=== PATIENT | male | born 1945 | race Caucasian/White ===

== ENCOUNTER 2021-03-16 07:55 | Emergency (ER) | payer MEDICARE, OTHER, SELFPAY ==
[2021-03-16 08:12] VITALS: BP 173/81; PULSE 47; RESP 18; TEMP 36.2; O2SAT 100
[2021-03-16 08:30] VITALS: BP 157/72; PULSE 48; RESP 16; O2SAT 14
--- NOTE | 2021-03-16 08:51 | ED.SOB ---
HPI - SOB/Dyspnea General Chief Complaint: Shortness of Breath/Dyspnea Stated Complaint: nausea/sob/unsteady x1 day Time Seen by Provider: 03/16/21 08:49 Source: patient Mode of arrival: Wheelchair Limitations: no limitations History of Present Illness HPI Narrative: This is a 75-year-old male who comes to the emergency department with complaint of feeling unsteady, a little bit lightheaded and wobbly today. He states he felt totally normal yesterday. He states that this morning when he woke up he just did not quite feel right. He was unable to check his glucose because he accidentally left his monitor at home. They are camping locally. Patient normally lives in [facility]. Patient states he has not had any fevers, he denies any chills, he denies any cough cold or congestion. He denies any chest pain or pressure. States he has noticed some very mild shortness of breath which is present all the time he denies any orthopnea or worsening with exertion. He denies any worsening shortness of breath. He had some mild nausea this morning which has since resolved. He denies any emesis. He denies any diarrhea, constipation, black or bloody stools. He denies any abdominal, back or flank pain. Patient denies any urinary symptoms including dysuria, urgency, frequency or incontinence. He has recently had his carvedilol decreased by half a month ago and had his lisinopril decreased by half prior to that. He takes medication for polymyalgia rheumatica, diabetes which includes only oral medications, hypertension, dyslipidemia and has a history of sleep apnea which he uses CPAP for. He does have a history of cardiac stent which is placed in 2009 after chest tightness and a positive stress test. He has not had any known MIs or strokes. Patient has multiple orthopedic surgeries, history of Felicia fundoplication, ventral hernia repair, a GIST tumor with removal and some complications that required endoscopy repair x2 and blood transfusion. Patient is anticoagulated on aspirin 81 mg. He is allergic to sulfa. He is accompanied by his . Related Data Allergies Allergy/AdvReac Type Severity Reaction Status Date / Time Sulfa (Sulfonamide Allergy Verified 03/16/21 08:14 Antibiotics) Review of Systems Review of Systems ROS Unobtainable: All systems reviewed & are unremarkable except as noted in HPI and below Patient History Social History Smoking Status: Never smoker Smoking Status: Never smoker alcohol intake frequency: other Substance Use Type: does not use Exam Narrative Exam Narrative: GENERAL: Alert and oriented x three, well-nourished male in mild distress. Patient is lying flat with no major discomfort. HEENT: Head normocephalic, atraumatic, EOMI, pupils reactive, face symmetric, moist mucous membranes NECK: Supple, full range of motion CARDIOVASCULAR: Regular rate and rhythm without murmurs, rubs or gallops. No JVD. No edema bilateral lower extremities. RESPIRATORY: Breath sounds equal bilaterally, no wheezes rales or rhonchi. No tachypnea accessory muscle use. ABDOMEN: Soft, nontender. Normoactive bowel sounds all 4 quadrants. No guarding or rebound, rigidity, no mass : No CVA tenderness EXTREMITIES: Normal range of motion, no clubbing or edema. Neurovascularly intact NEUROLOGICAL: Cranial nerves II through XII grossly intact. Moving all extremities SKIN: Warm, dry, no petechiae, no rashes or lesions. Initial Vital Signs Initial Vital Signs: Vital Signs Temperature 97.1 F L 03/16/21 08:12 Pulse Rate 47 L 03/16/21 08:12 Respiratory Rate 18 03/16/21 08:12 Blood Pressure 173/81 H 03/16/21 08:12 Pulse Oximetry 100 03/16/21 08:12 Course Orders Ordered: ED Orders 03/16/21 08:25 BNP [NT-proBNP (BNP-Adult 18+)] Stat Complete Blood Count AUTO DIFF Stat Comprehensive Metabolic Panel Stat Lipase Stat Magnesium Stat Partial Thromboplastin Time Stat Prothrombin Time INR Stat Troponin & CK Cardiac Panel Stat 03/16/21 09:15 XR chest 1V Stat Reevaluation(s) Reevaluation #1: Discussed labs, imaging and EKG findings with patient and . Discussed possible causes. They did note that patient had not had anything for breakfast this morning. He accidentally left his glucometer at home but his hemoglobin A1c has been 6.5-6.8 recently. They did note that he had cookies before bed and thought he may have spiked and then been low this morning. We discussed he should return if he has recurrent symptoms. All questions were answered. Time: 10:34 Vital Signs Vital signs: Vital Signs - 8 hr 03/16/21 08:12 03/16/21 08:30 03/16/21 09:00 Temperature 97.1 F L Pulse Rate 47 L 48 L 49 L Respiratory Rate 18 16 14 Blood Pressure 173/81 H 157/72 H 149/73 H Pulse Oximetry 100 14 L 99 03/16/21 09:35 Temperature Pulse Rate 47 L Respiratory Rate 16 Blood Pressure 156/67 H Pulse Oximetry 99 MDM - SOB/Dyspnea Lab Data Attestation: I reviewed the patient's lab results. Result diagrams: 03/16/21 08:25 03/16/21 08:25 Labs: Lab Results 03/16/21 03/16/21 03/16/21 Range/Units 08:25 08:25 08:25 WBC 5.6 (4.5-11.0) X10^3/uL RBC 4.15 L (4.5-5.9) X10^6/uL Hgb 12.9 L (13.5-17.5) g/dL Hct 37.9 L (41-53) % MCV 91.3 (80-100) fL MCH 31.0 (26-34) PG MCHC 34.0 (30-36) % RDW 13.8 (11.6-14.8) % Plt Count 186 (150-400) X10^3/uL Neut % (Auto) 65.5 (50-75) % Lymph % (Auto) 18.4 L (25-40) % [place] % (Auto) 9.7 (3-14) % Eos % (Auto) 5.7 H (2-4) % Baso % (Auto) 0.7 (0-2) % Neut # (Auto) 3700 (1457-0386) /uL Lymph # (Auto) 1000 L (7929-0910) /uL [place] # (Auto) 500 (0-900) /uL Eos # (Auto) 300 (0-450) /uL Baso # (Auto) 0 (0-100) /uL PT 11.8 (10.1-12.7) SECONDS INR 1.0 (0.9-1.3) APTT 32 (26.4-36.2) SECONDS Sodium 137 (137-145) mmol/L Potassium 4.0 (3.4-5.1) mmol/L Chloride 99 (98-107) mmol/L Carbon Dioxide 31 (22-32) mmol/L BUN 28 H (9-20) mg/dL Creatinine 1.04 (0.66-1.25) mg/dL Estimated GFR > 60.0 (>60) mL/min BUN/Creatinine Ratio 26.9 H (6-22) Glucose 131 H (80-110) mg/dL Calcium 9.1 (8.4-10.2) mg/dL Magnesium 2.0 (1.6-2.3) mg/dL Total Bilirubin 1.1 (0.2-1.3) mg/dL AST 25 (17-59) IU/L ALT 17 (<50) IU/L Alkaline Phosphatase 87 (38-126) U/L Total Creatine Kinase 51 L (55-170) U/L CK-MB (CK-2) TNP CK-MB (CK-2) Rel Index TNP Troponin I < 0.012 (0.01-0.034) ng/mL NT-Pro-B Natriuret Pep (<450) pg/mL Total Protein 6.7 (6.3-8.2) g/dL Albumin 3.9 (3.5-5.0) g/dL Globulin 2.8 (1.7-4.1) g/dL Albumin/Globulin Ratio 1.4 (1.0-2.8) Lipase 31 (23-300) U/L / Range/Units 08:25 WBC (4.5-11.0) X10^3/uL RBC (4.5-5.9) X10^6/uL Hgb (13.5-17.5) g/dL Hct (41-53) % MCV (80-100) fL MCH (26-34) PG MCHC (30-36) % RDW (11.6-14.8) % Plt Count (150-400) X10^3/uL Neut % (Auto) (50-75) % Lymph % (Auto) (25-40) % [place] % (Auto) (3-14) % Eos % (Auto) (2-4) % Baso % (Auto) (0-2) % Neut # (Auto) (9054-9305) /uL Lymph # (Auto) (0270-2355) /uL [place] # (Auto) (0-900) /uL Eos # (Auto) (0-450) /uL Baso # (Auto) (0-100) /uL PT (10.1-12.7) SECONDS INR (0.9-1.3) APTT (26.4-36.2) SECONDS Sodium (137-145) mmol/L Potassium (3.4-5.1) mmol/L Chloride (98-107) mmol/L Carbon Dioxide (22-32) mmol/L BUN (9-20) mg/dL Creatinine (0.66-1.25) mg/dL Estimated GFR (>60) mL/min BUN/Creatinine Ratio (6-22) Glucose (80-110) mg/dL Calcium (8.4-10.2) mg/dL Magnesium (1.6-2.3) mg/dL Total Bilirubin (0.2-1.3) mg/dL AST (17-59) IU/L ALT (<50) IU/L Alkaline Phosphatase (38-126) U/L Total Creatine Kinase (55-170) U/L CK-MB (CK-2) CK-MB (CK-2) Rel Index Troponin I (0.01-0.034) ng/mL NT-Pro-B Natriuret Pep 158 (<450) pg/mL Total Protein (6.3-8.2) g/dL Albumin (3.5-5.0) g/dL Globulin (1.7-4.1) g/dL Albumin/Globulin Ratio (1.0-2.8) Lipase (23-300) U/L Urine Dip Bedside Urine Glucose Negative Bedside Urine Bilirubin - Negative Bedside Urine Ketone - Negative Urine Specific [place] 1.020 Bedside Urine Occult Blood - Negative Bedside Urine pH 6.0 Bedside Urine Protein - Negative Bedside Urine Urobilinogen - Negative Bedside Urine Nitrite - Negative Bedside Urine Leukocytes - Negative Esterase Imaging Data Chest x-ray: Radiologist's Impression: [address] [id number] ReportSigned Patient: Solo Mcdermott [facility]#: [id number]: 4Acct:[id number]/Sex: 75 / MDate of Service: 03/16/21Loc: EDAccession Number: [id number] Procedure: XR chest 1V Ordering Provider: Adela Piedra D.O. PROCEDURE: XR CHEST 1V INDICATIONS: chest pain TECHNIQUE: One view of the chest was acquired. COMPARISON: None. FINDINGS: Surgical changes and devices: None. Lungs and pleura: Lungs are clear. No pleural effusions or pneumothorax. Mediastinum: Mediastinal contours appear normal. Heart size is normal. Bones and chest wall: No suspicious bony lesions. Overlying soft tissues appear unremarkable. IMPRESSION: No acute cardiopulmonary process demonstrated radiographically. Dictated by: Parrish Hightower M.D. on 03/16/2021 at 9:47 Approved by: Parrish Hightower M.D. on 03/16/2021 at 9:47 ECG Data Attestation: I personally reviewed and interpreted this ECG as follows: Prior ECG tracings: not available for review Interpretation: Sinus bradycardia with a rate of 48, OR 206 QRS of 106 and QTC of 398. No acute ST elevation appreciated. Nonspecific change. MDM Narrative Medical decision making narrative: This is a 75-year-old male comes to the emergency department with feeling wobbly, which has improved. Patient does have anemia unclear if this is new or unchanged as patient does not have any prior labs for comparison. He has not noticed any acute changes recently. He does not have any obvious cardiac, pulmonary or infectious causes that are him to feel unwell today. Patient actually was requesting to leave prior to the rest of his evaluation and has been feeling significantly better. He was unable to check his glucose this morning but it was 131 here in the department. Discussed with patient if he has recurrent systems asked to return for repeat evaluation patient and his state that he actually is known to be mildly anemic and they feel this is likely his normal baseline. Discharge Plan Departure Patient Disposition: Home Clinical Impression: Anemia Activity Restrictions/Additional Instructions: Follow up with your physician for recheck. Your hemoglobin today is 12.9 which means or mildly anemic. It is unclear if this is your normal baseline as I have none for comparison so I would discuss with your physician. If this is low from your prior baseline your physician may wish to investigate further. You may continue your home medications as prescribed. Please return for new lightheadedness, passing out, chest pain, shortness of breath, persistent vomiting, black or bloody stools, new swelling in your extremities or other new or concerning symptoms. Referrals: Chuy Betancourt MD [Primary Care Provider] -
[2021-03-16 09:00] VITALS: BP 149/73; PULSE 49; RESP 14; O2SAT 99
--- NOTE | 2021-03-16 09:15 | DI.RAD.S_ITS ---
PROCEDURE: XR CHEST 1V INDICATIONS: chest pain TECHNIQUE: One view of the chest was acquired. COMPARISON: None. FINDINGS: Surgical changes and devices: None. Lungs and pleura: Lungs are clear. No pleural effusions or pneumothorax. Mediastinum: Mediastinal contours appear normal. Heart size is normal. Bones and chest wall: No suspicious bony lesions. Overlying soft tissues appear unremarkable. IMPRESSION: No acute cardiopulmonary process demonstrated radiographically. Dictated by: Parrish Hightower M.D. on 03/16/2021 at 9:47 Approved by: Parrish Hightower M.D. on 03/16/2021 at 9:47
[2021-03-16 09:20] LABS: Add Manual Diff / Slide Review NO; Basophils Absolute Auto 0 /uL (0-100); Basophils Percent Auto 0.7 % (0-2); Eosinophils Absolute Auto 300 /uL (0-450); Eosinophils Percent Auto 5.7 % (2-4); Hematocrit 37.9 % (41-53); Hemoglobin 12.9 g/dL (13.5-17.5); Lymphocytes Absolute Auto 1000 /uL (1100-4500); Lymphocytes Percent Auto 18.4 % (25-40); Mean Corpuscular Volume 91.3 fL (80-100); Monocytes Absolute Auto 500 /uL (0-900); Monocytes Percent Auto 9.7 % (3-14); Neutrophils Absolute Auto 3700 /uL (1500-7000); Neutrophils Percent Auto 65.5 % (50-75); Platelet Count 186 X10^3/uL (150-400); Red Blood Cell Count 4.15 X10^6/uL (4.5-5.9); Red Cell Distribution Width 13.8 % (11.6-14.8); White Blood Cell Count 5.6 X10^3/uL (4.5-11.0)
[2021-03-16 09:21] LABS: Prothrombin Time 11.8 SECONDS (10.1-12.7)
[2021-03-16 09:23] LABS: PTT Partial Thromboplastin Tim 32 SECONDS (26.4-36.2)
[2021-03-16 09:25] LABS: Alanine Aminotransferase 17 IU/L (<50); Albumin 3.9 g/dL (3.5-5.0); Albumin Globulin Ratio 1.4 (1.0-2.8); Alkaline Phosphatase 87 U/L (38-126); Aspartate Aminotransferase 25 IU/L (17-59); BUN Creatinine Ratio 26.9 (6-22); Bilirubin Total 1.1 mg/dL (0.2-1.3); Blood Urea Nitrogen 28 mg/dL (9-20); Calcium 9.1 mg/dL (8.4-10.2); Carbon Dioxide 31 mmol/L (22-32); Chloride 99 mmol/L (98-107); Creatine Kinase 51 U/L (55-170); Estimated Glomerular Filt Rate > 60.0 mL/min (>60); Globulin 2.8 g/dL (1.7-4.1); Glucose 131 mg/dL (80-110); HEMOLYSIS < 15 (0-50); Lipase 31 U/L (23-300); Sodium 137 mmol/L (137-145); Total Protein 6.7 g/dL (6.3-8.2)
[2021-03-16 09:35] VITALS: BP 156/67; PULSE 47; RESP 16; O2SAT 99
[2021-03-16 09:36] LABS: Troponin I < 0.012 ng/mL (0.01-0.034)
[2021-03-16 09:59] VITALS: PULSE 44; RESP 16; O2SAT 98
[2021-03-16 10:00] VITALS: BP 128/79; PULSE 60; RESP 21; O2SAT 97
[2021-03-16 10:00] LABS: NT-proBNP (BNP-Adult 18+) 158 pg/mL (<450)
== END 2021-03-16 10:54 | disposition home or self-care (01) ==
PROVIDERS: Emergency Provider Emergency Medicine; PCP Urology
DX: D64.9 Anemia, unspecified (principal); R06.02 Shortness of breath; R07.9 Chest pain, unspecified
CPT/HCPCS: 36415; 71045; 80053; 81003; 82550; 83690; 83735; 83880; 84484; 85025; 85610; 85730; 93005; 93010; 99284